=== PATIENT | female | born 1990 | race American Indian/Alaskan Native ===

== ENCOUNTER 2018-02-17 19:19 | Emergency (ER) | payer SELFPAY ==
[2018-02-17 19:47] VITALS: BP 116/81
[2018-02-18 00:14] LABS: Mucus,Urine 2+ /HPF
[2018-02-18 00:27] LABS: Bilirubin,Urine Negative (Negative); Blood,Urine Negative (Negative); Color,Urine Yellow (Yellow)
[2018-02-18 00:28] LABS: HCG Qualitative,Urine Negative (Negative); Urobilinogen,Urine < 2.0 mg/dL (<2.0)
== END 2018-02-17 21:32 | disposition left against medical advice (07) ==
LOC: ED 19:19
DX: R10.9 Unspecified abdominal pain (principal); Z53.21 Procedure and treatment not carried out due to patient leaving prior to being seen by health care provider
CPT/HCPCS: 81001; 81025